=== PATIENT | female | born 1980 | race Caucasian/White ===

== ENCOUNTER 2022-01-15 12:21 | Inpatient (IN) | payer OTHER ==
[~2022-01-15] VITALS: Ht 170.2 cm; Wt 81.6 kg
[2022-01-15 13:14] LABS: HEMOGLOBIN 13.3 gm/dl (12.3-15.3); RED BLOOD COUNT 3.87 M/UL (4.00-5.10); WHITE BLOOD COUNT 10.6 K/UL (4.5-11.0)
[2022-01-15 13:40] LABS: BUN/CREATININE RATIO 15 (0-10)
[2022-01-15] MEDS ORDERED: OMNICEF 300 MG300 MG PO (15:52)
[2022-01-15] MEDS ORDERED: ALPRAZOLAM1 MG PO (17:16)
[2022-01-15] MEDS ORDERED: WELLBUTRIN SR150 M1 PO (17:17)
[2022-01-15] MEDS ORDERED: GABAPENTIN800 MG PO (17:19)
[2022-01-15] MEDS ORDERED: QUETIAPINE FUM100 MG PO (17:20)
[2022-01-16 03:37] LABS: HEMOGLOBIN 13.6 gm/dl (12.3-15.3); RED BLOOD COUNT 3.97 M/UL (4.00-5.10)
[2022-01-16 03:48] LABS: WHITE BLOOD COUNT 14.6 K/UL (4.5-11.0)
--- NOTE | 2022-01-16 16:15 | NUR ---
Patient had a temperature of 101.4, gave patient tylenol annd temp is now 100.1, will continue to monitor patient for fever.
--- NOTE | 2022-01-16 17:12 | NUR ---
MD made aware that patient had a temperature of 101.4, patient now has a temperature of 99.0. No new orders at this time. Will continue to monitor.
[2022-01-17 06:36] LABS: HEMOGLOBIN 13.4 gm/dl (12.3-15.3); RED BLOOD COUNT 3.93 M/UL (4.00-5.10)
[2022-01-17 06:37] LABS: WHITE BLOOD COUNT 7.3 K/UL (4.5-11.0)
[2022-01-17] MEDS ORDERED: BACTRIM DS TAB1 EACH PO (14:38)
[2022-01-17] MEDS ORDERED: HYDROCODON-ACE1 EAC4 PO ×2 (14:58→15:21)
[2022-01-17] MEDS ORDERED: PHENERGAN 12.12.5 M1 PO (15:49)
== END 2022-01-17 17:42 | disposition home or self-care (01) | DRG 690 ==
LOC: ER1 12:21 → CDU 16:25 → M/S 16:25
PROVIDERS: Physician Assistant; ADMIT Internal Medicine
DX: N10 Acute pyelonephritis (principal); N30.00 Acute cystitis without hematuria; G62.9 Polyneuropathy, unspecified; Z20.822 Contact with and (suspected) exposure to COVID-19; B96.20 Unspecified Escherichia coli [E. coli] as the cause of diseases classified elsewhere; F41.9 Anxiety disorder, unspecified; E87.6 Hypokalemia; B18.2 Chronic viral hepatitis C; F17.210 Nicotine dependence, cigarettes, uncomplicated; Z79.899 Other long term (current) drug therapy; Z81.8 Family history of other mental and behavioral disorders; Z98.890 Other specified postprocedural states; Z83.3 Family history of diabetes mellitus
CPT/HCPCS: 36415; 80053; 81001; 83605; 84703; 85025; 85027; 87040; 87077; 87086; 87186; 96372; 96374; 96375; 96376; 99284; G0378; J0696; J1335; J1650; J1885; J2270; J2405; J7030; U0002